=== PATIENT | male | born 1960 | race African-American/Black ===

== ENCOUNTER 2018-04-20 16:21 | Emergency (ER) | payer OTHER ==
[~2018-04-20] VITALS: Ht 188 cm; Wt 104.3 kg
[2018-04-20 16:55] VITALS: BP 158/87
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
[2018-04-20] MEDS ORDERED: LIDODERM700 M1 TOPIC (17:21)
[2018-04-20] MEDS ORDERED: IBUPROFEN600 MG ORAL (17:21)
[2018-04-20] MEDS ORDERED: ROBAXIN500 MG PO (17:21)
[2018-04-20 17:40] VITALS: BP 148/77
== END 2018-04-20 17:30 | disposition home or self-care (01) ==
LOC: EMR 17:10
DX: S16.1XXA Strain of muscle, fascia and tendon at neck level, initial encounter (principal); V43.52XA Car driver injured in collision with other type car in traffic accident, initial encounter; Y92.410 Unspecified street and highway as the place of occurrence of the external cause
CPT/HCPCS: 99282